=== PATIENT | male | born 1950 | race Caucasian/White ===

== ENCOUNTER → 2023-07-22 08:06 | Outpatient (REF) | payer MEDICARE, OTHER, SELFPAY | LOC: RAD 08:06 | PROVIDERS: ATTENDING PHYSICIAN Orthopaedic Surgery; FAMILY PHYSICIAN Family Medicine | DX: M25.511 Pain in right shoulder (principal) | CPT/HCPCS: 73030; 76882 ==

== ENCOUNTER → 2023-09-25 12:09 | Outpatient (REF) | payer MEDICARE, OTHER, SELFPAY | LOC: HWRAD 12:09 | PROVIDERS: ATTENDING PHYSICIAN Family Medicine | DX: R05.1 Acute cough (principal); J40 Bronchitis, not specified as acute or chronic | CPT/HCPCS: 71046 ==

== ENCOUNTER → 2024-02-01 13:37 | Outpatient (REF) | payer MEDICARE, OTHER, SELFPAY | LOC: HWRCS 13:37 | PROVIDERS: ATTENDING PHYSICIAN Internal Medicine Cardiovascular Disease; FAMILY PHYSICIAN Family Medicine | DX: I25.10 Atherosclerotic heart disease of native coronary artery without angina pectoris (principal) | CPT/HCPCS: 93306 ==

== ENCOUNTER → 2024-04-05 12:50 | Day surgery (SDC) | payer MEDICARE, OTHER, SELFPAY ==
[2024-04-05 14:09] LABS: Hematocrit 43.2 % (39.0-52.0); Hemoglobin 15.1 g/dL (13.0-18.0); Mean Corpuscular Hgb 31.7 pg (27.0-31.0); Mean Corpuscular Volume 90.6 fL (80.0-94.0); Mean Platelet Volume 10.4 fL (7.4-10.4); Platelet Count 259 10^3/uL (130-400); Red Blood Cell Count 4.77 10^6/uL (4.70-6.10); Red Cell Dist. Width 12.9 % (11.5-14.5)
== END ==
LOC: SDSPAT 12:50
PROVIDERS: ATTENDING PHYSICIAN Orthopaedic Surgery; FAMILY PHYSICIAN Family Medicine; OTHER PHYSICIAN Internal Medicine Cardiovascular Disease
DX: Z01.812 Encounter for preprocedural laboratory examination (principal)
CPT/HCPCS: 85027; 36415

== ENCOUNTER 2024-04-21 06:24 | Day surgery (SDC) | payer MEDICARE, OTHER, SELFPAY ==
[2024-04-05 14:04] VITALS: BMI 33.6
[2024-04-21 07:21] VITALS: BP 154/93; BMI 33.6
[2024-04-21] MEDS: TYLENOL 1000 MG PO (07:25)
[2024-04-21] MEDS: CELEBREX 200 MG PO (07:25)
[2024-04-21] MEDS: NORMOSOL-R/PLASMALYTE-A 1000 IV (07:26)
[2024-04-21 10:23] VITALS: BP 111/85; BP 154/93
[2024-04-21 10:26] VITALS: BP 111/85
[2024-04-21 10:30] VITALS: BP 108/72
[2024-04-21 11:35] VITALS: BP 97/75
[2024-04-21 12:00] VITALS: BP 103/68
== END 2024-04-21 12:39 | disposition home or self-care (01) ==
LOC: SDS 06:24
PROVIDERS: ATTENDING PHYSICIAN Orthopaedic Surgery; FAMILY PHYSICIAN Internal Medicine Cardiovascular Disease
DX: M75.121 Complete rotator cuff tear or rupture of right shoulder, not specified as traumatic (principal); X58.XXXA Exposure to other specified factors, initial encounter; Z98.890 Other specified postprocedural states
CPT/HCPCS: 29827; 29828; C1713